=== PATIENT | female | born 2000 | race American Indian/Alaskan Native ===

== ENCOUNTER 2021-03-08 17:36 | Emergency (ER) | payer SELFPAY ==
[2021-03-08] MEDS ORDERED: SODIUM CHLORIDE 0.9% 1000 ML 1,000 ML IV ONE ×2 (17:59→18:00)
--- NOTE | 2021-03-08 18:08 | Emergency Department Report ---
HPI - General Chief Complaint: Arrhythmia/Palpitations Time Seen by Provider: 03/08/21 17:42 - HPI HPI: 20-year-old female at 7 weeks gestation according to first semester ultrasound according to the patient, presents via EMS for chief complaint of 2 days of palpitations and exertional shortness of breath. Patient states that her only medical history is asthma, but she very infrequently has asthma attacks and does not use an inhaler regularly. In fact, she does not currently on an inhaler. She states that for the past 2 days she has had generalized malaise. She is also been having intermittent palpitations. When she woke up this morning, she noticed that her heart was beating very fast. She admits to having very poor p.o. intake of fluids for the past 2 days. She drank a bunch of water today because of her palpitations this morning but this did not seem to help. She states that over the past 2 days she has noticed that when she stands up and exerts herself by walking upstairs or walking to other rooms she feels short of breath and gets chest tightness which feels similar to prior asthma attacks. According to the EMS report, the patient's heart rate changes from the 100s to the 160s upon standing. She denies any associated fever/chills, headache, vision change, neck pain, back pain, mid substernal chest pain, cough, shortness of breath at rest, abdominal pain, lower extremity edema, nausea/vomiting, dysuria, hematuria, vaginal bleeding, or any other complaints. At this moment in time, she denies any symptoms. ED Past Medical Hx - Past Medical History Previous Medical History?: Yes Hx Asthma: Yes - Social History Smoking Status: Never Smoker Substance Use Type: None ED Review of Systems ROS: Stated complaint: TACHYCARDIA Other details as noted in HPI Constitutional: malaise. denies: chills, fever Eyes: denies: eye pain, vision change ENT: denies: throat pain, congestion Respiratory: SOB with exertion. denies: cough, SOB at rest Cardiovascular: palpitations. denies: chest pain (chest congestion), edema, syncope Gastrointestinal: denies: abdominal pain, nausea, vomiting Genitourinary: denies: dysuria, frequency, hematuria Musculoskeletal: denies: back pain, myalgia Skin: denies: rash Neurological: denies: headache, weakness, numbness Psychiatric: denies: anxiety Physical Exam - Physical Exam Physical Exam: GENERAL: Well developed and well nourished. No acute distress HEENT: Normocephalic. No obvious signs of trauma. Moist mucous membranes. EYES: Extraocular movements are intact. Pupils are equal round and reactive to light bilaterally NECK: Supple. Trachea is midline. LUNGS: Nonlabored breathing. Equal chest rise bilaterally. Clear to auscultation bilaterally. HEART/CARDIOVASCULAR: Tachycardic but with regular rhythm. No murmurs or rubs. VASCULAR: 2+ peripheral pulses. Cap refill < 2 seconds. Trace lower extremity edema bilaterally ABDOMEN: Abdomen is soft and nondistended. There is no significant tenderness, guarding or rebound. SKIN: Skin is warm and dry NEURO: Patient is awake, alert, and oriented. nematologist II-XII grossly intact. No focal deficits. Normal motor and sensory exam throughout. Normal speech. MUSCULOSKELETAL: No obvious deformities. No significant tenderness. ED Medical Decision Making - Lab Data Result diagrams: 03/08/21 18:04 03/08/21 18:04 - EKG Data -: EKG Interpreted by Md - EKG Data 03/08/21 18:48 Normal sinus rhythm. Normal axis. Normal intervals. No ectopy. Nonspecific T wave inversions but no significant ST segment abnormalities. - Radiology Data CHEST 1 VIEW INDICATION / CLINICAL INFORMATION: SOB on exertion. COMPARISON: None available. FINDINGS: SUPPORT DEVICES: None. HEART / MEDIASTINUM: No significant abnormality. LUNGS / PLEURA: No significant pulmonary or pleural abnormality. No pneumothorax. ADDITIONAL FINDINGS: No significant additional findings. IMPRESSION: No acute pulmonary or pleural abnormality Signer Name: Emerson Burkett MD FACR Signed: 03/08/2021 7:04 PM Workstation Name: [id number] OB <= 14 weeks fetus INDICATION / CLINICAL INFORMATION: confirm iup. COMPARISON: None available. FINDINGS: A single live fetus is seen in the uterus with heart rate of 166. A yolk sac is present. [place]-rump length is 1.23 cm equaling 7 weeks 3 days gestational age. Right ovary was not visualized. A small cyst is seen in the left ovary. IMPRESSION: Single live fetus of approximately 7 weeks 3 days gestational age in the uterus with heart rate of 166 Signer Name: Emerson Burkett MD FACR Signed: 03/08/2021 7:29 PM Workstation Name: [id number] - Medical Decision Making 20-year-old G1, P0 female at 7 weeks gestation according to trimester ultrasound according to the patient brought in by EMS complaining of 2 days of generalized malaise, palpitations, and exertional dyspnea. She does admit to poor fluid intake over the past 2 days, but states that she tried to drink much water today and this did not improve her symptoms. On initial assessment, the patient is resting comfortably in the stretcher connected to the monitor. When I am in the room speaking to the patient, her heart rate is in the 110s to 120s, but when not in the room, her heart rate is in the 80s. She has normal oxygen saturation on room air. Physical examination is unremarkable other than tachycardia with regular rhythm. The Wells PE score is 1.5, corresponding to low risk of PE. Given that the patient reports poor fluid intake over the past 2 days, her elevated heart rate which increases upon standing could be related to dehydration. In addition, her symptoms could be attributed to as sociated physiologic changes. Nonetheless, we will perform broad work-up with EKG, full set of labs including BNP, troponin, and D-dimer, chest x-ray, and OB ultrasound to confirm IUP. We will obtain orthostatic vital signs and give 2 L of IV fluids. We will continue to monitor the patient closely. Labs have partially resulted and there is no significant leukocytosis or anemia. D-dimer is negative, making pulmonary embolism highly improbable. The remaining diagnostic studies are still pending. The patient does have positive orthostatic vital signs due to increased heart rate upon standing. She did not develop any symptoms, however. Again, this is likely related to state of dehydration and state. BMP reveals mild hyponatremia with sodium of 132 consistent with dehydration. There are no other significant electrolyte abnormalities. Kidney function is normal. BNP is normal. Troponin is negative. TSH is normal. We will follow- up the remaining diagnostic studies as well as reassess the patient after she has received the 2 L of IV fluids. The patient remains with normal heart rate and normal oxygen saturation on room air. On repeat assessment at 9:50 PM, the patient reports that she feels entirely better. Chest x-ray is clear. OB ultrasound confirms the presence of a 7-week 3-day old intrauterine with heart rate of 166. IV fluids are still running. The patient wants to go home. I explained to her the diagnosis of orthostatic tachycardia and the fact that this may be present in but may have been exacerbated by dehydration. She has another IV fluid bag which will be run. After this, we will walk her and ensure that she is steady and stable on her feet and remains symptomatically improved, and if so she will be discharged home with instructions to follow-up with WILL CALL ORDER CLERK in the next couple days. Patient was able to ambulate with steady gait. She is asymptomatic. She is ready go home. Critical care attestation.: If time is entered above; I have spent that time in minutes in the direct care of this critically ill patient, excluding procedure time. ED Disposition Clinical Impression: Dehydration, Orthostasis, Disposition: DC-01 TO HOME OR SELFCARE Is pt being admited?: No Condition: Stable Instructions: Care, First Trimester of , [id number], First Trimester of , Dehydration, Adult Additional Instructions: Please follow-up with an WILL CALL ORDER CLERK within 2 to 3 days. Please return to the emergency department should you develop worsening symptoms, inability to tolerate food or liquids, high fever or any other concerns Referrals: [facility] [Provider Group] - 2-3 Days
[2021-03-08 18:20] LABS: Basophils # (Auto) 0.1 K/mm3 (0.0-0.1); Basophils % (Auto) 0.6 % (0.0-1.8); Eosinophils # (Auto) 0.1 K/mm3 (0.0-0.4); Eosinophils % (Auto) 0.6 % (0.0-4.3); Hematocrit 38.7 % (30.3-42.9); Hemoglobin 12.8 gm/dl (10.1-14.3); Lymphocytes # (Auto) 1.4 K/mm3 (1.2-5.4); Lymphocytes % (Auto) 11.6 % (13.4-35.0); Mean Corpuscular HGB Conc 33 % (30-34); Mean Corpuscular Volume 90 fl (79-97); Monocytes # (Auto) 0.8 K/mm3 (0.0-0.8); Monocytes % (Auto) 6.9 % (0.0-7.3); Platelet Count 250 K/mm3 (140-440); Red Blood Count 4.33 M/mm3 (3.65-5.03); Red Cell Distribution Width 13.8 % (13.2-15.2)
[2021-03-08 18:39] LABS: Alanine Aminotransferase 8 units/L (7-56); Albumin 4.4 g/dL (3.9-5); Blood Urea Nitrogen 4 mg/dL (7-17); Calcium 10.2 mg/dL (8.4-10.2); Hemolysis Index 8
[2021-03-08 18:49] LABS: BUN/Creatinine Ratio 8; Bilirubin,Direct < 0.2 mg/dL (0-0.2)
[2021-03-08 18:54] LABS: Bilirubin,Urine NEG (Negative); Blood,Urine NEG (Negative); Color,Urine Straw (Yellow); Protein,Urine <15 mg/dL mg/dL (Negative); Urobilinogen,Urine < 2.0 mg/dL (<2.0)
--- NOTE | 2021-03-08 20:08 | XRay Report ---
CHEST 1 VIEW INDICATION / CLINICAL INFORMATION: SOB on exertion. COMPARISON: None available. FINDINGS: SUPPORT DEVICES: None. HEART / MEDIASTINUM: No significant abnormality. LUNGS / PLEURA: No significant pulmonary or pleural abnormality. No pneumothorax. ADDITIONAL FINDINGS: No significant additional findings. IMPRESSION: No acute pulmonary or pleural abnormality Signer Name: Emerson Burkett MD FACR Signed: 03/08/2021 8:04 PM Workstation Name: [id number]
--- NOTE | 2021-03-08 20:34 | Ultrasound Report ---
US OB <= 14 weeks fetus INDICATION / CLINICAL INFORMATION: confirm iup. COMPARISON: None available. FINDINGS: A single live fetus is seen in the uterus with heart rate of 166. A yolk sac is present. [place]- rump length is 1.23 cm equaling 7 weeks 3 days gestational age. Right ovary was not visualized. A sma ll cyst is seen in the left ovary. IMPRESSION: Single live fetus of approximately 7 weeks 3 days gestational age in the uterus with heart rate of 166 Signer Name: Emerson Burkett MD FACR Signed: 03/08/2021 8:29 PM Workstation Name: [id number]
[2021-03-08] MEDS ORDERED: SODIUM CHLORIDE 0.9% 1000 ML 1,000 ML ONE (21:22)
[2021-03-09 01:14] VITALS: BP 118/67
--- NOTE | 2021-03-09 09:58 | Electrocardiograph Report ---
[facility] Test Date: 2021-03-08 Test Time: 18:37:42 Pat Name: REMY PACHECO Department: Room: Gender: F [employer] Supervisor: GALA : 2000 Requested By: ANA BUITRAGO Order Number: [id number] Reading MD: Kishor Blanco Measurements Intervals [place] Rate: 81 P: 28 OK: 157 QRS: 24 QRSD: 84 T: 9 QT: 358 QTc: 415 Interpretive Statements Sinus rhythm No previous ECG available for comparison Electronically Signed On 03-09-2021 9:57:37 EDT by Kishor Blanco
== END 2021-03-09 01:15 | disposition home or self-care (01) ==
LOC: ED 17:36
DX: O26.891 Other specified pregnancy related conditions, first trimester (principal); I95.1 Orthostatic hypotension; E86.0 Dehydration; R00.2 Palpitations; J45.909 Unspecified asthma, uncomplicated; Z79.899 Other long term (current) drug therapy; Z3A.01 Less than 8 weeks gestation of pregnancy
CPT/HCPCS: 36415; 71045; 76801; 80048; 80076; 81001; 83880; 84443; 84484; 84702; 85025; 85379; 93005; 96360; 96361; 99285; J7030

== ENCOUNTER 2021-11-29 15:30 | Emergency (ER) | payer MEDICAID ==
[2021-11-29 16:09] LABS: Hematocrit 35.7 % (30.3-42.9); Hemoglobin 11.5 gm/dl (10.1-14.3); Mean Corpuscular HGB Conc 32 % (30-34); Mean Corpuscular Volume 79 fl (79-97); Platelet Count 198 K/mm3 (140-440); Red Blood Count 4.52 M/mm3 (3.65-5.03); Red Cell Distribution Width 26.2 % (13.2-15.2)
[2021-11-29 16:41] LABS: Eosinophils % (Manual) 0 % (0.0-4.3); Total Cells Counted 100
[2021-11-29 16:42] LABS: Anisocytosis 2+; Hypochromasia 1+; Platelet Estimate Consistent w Auto; Poikilocytosis 1+; Tear Drop Cells Few
[2021-11-29] MEDS ORDERED: SODIUM CHLORIDE 0.9% 1000 ML 1,000 ML IV ONE ×2 (21:23→21:34)
[2021-11-29] MEDS ORDERED: MORPHINE 2 MG/1 ML INJ IM ONE (21:33)
[2021-11-29] MEDS ORDERED: ACETAMINOPHEN 325 MG TAB PO ONE (21:33)
[2021-11-29] MEDS ORDERED: MORPHINE 4 MG/1 ML INJ IV ONE (21:34)
[2021-11-29] MEDS ORDERED: ONDANSETRON 4 MG/2 ML INJ IV ONE (21:34)
--- NOTE | 2021-11-29 21:36 | Emergency Department Report ---
ED General Adult HPI - General Chief complaint: Vaginal Bleeding Stated complaint: VAGINAL BLEEDING PUI?: No Time Seen by Provider: 11/29/21 20:50 Source: patient, EMS ( EMS documentation not available at time of chart di ctation ), RN notes reviewed Mode of arrival: Stretcher Limitations: No Limitations - History of Present Illness Initial comments: During the history and physical examination, I am chaperoned by Dora Workman The patient is a 21-year-old female. She is approximately 1 month status post , at [facility]. She reports that after giving , she had a "uterus infection", and now presents to the ER today with a complaint of 1 week of vaginal bleeding and abdominal cramping. Denies headache, neck pain, chest pain, vomiting, diarrhea, dysuria. Endorses abdominal distention, and reports that she has bled "too many pads to count." She does have some lower abdominal pain and cramping. She reports that prior to this week, vaginal bleeding had stopped. -: days(s) Location: abdomen Quality: aching Consistency: constant Improves with: rest Worsens with: movement - Related Data Previous Rx's Medication Instructions Recorded Last Taken Type Acetaminophen [Non-Aspirin Extra 500 mg PO Q6HR PRN #30 tablet 11/29/21 Unknown Rx Strength] Ibuprofen [Motrin] 400 mg PO Q8H PRN #30 tablet 11/29/21 Unknown Rx Allergies Allergy/AdvReac Type Severity Reaction Status Date / Time No Known Allergies Allergy Verified 11/29/21 15:43 ED Review of Systems ROS: Stated complaint: VAGINAL BLEEDING Other details as noted in HPI Constitutional: denies: fever Eyes: denies: eye discharge ENT: denies: epistaxis Respiratory: denies: cough Cardiovascular: denies: chest pain Gastrointestinal: abdominal pain. denies: nausea, vomiting, diarrhea Genitourinary: other (Vaginal bleeding). denies: dysuria Neurological: denies: weakness ED Past Medical Hx - Past Medical History Hx Asthma: Yes - Social History Smoking Status: Never Smoker Substance Use Type: None - Medications Home Medications: Home Medications Medication Instructions Recorded Confirmed Last Taken Type Acetaminophen [Non-Aspirin Extra 500 mg PO Q6HR PRN #30 tablet 11/29/21 Unknown Rx Strength] Ibuprofen [Motrin] 400 mg PO Q8H PRN #30 tablet 11/29/21 Unknown Rx ED Physical Exam - General Limitations: No Limitations General appearance: alert, in no apparent distress - Head Head exam: Present: atraumatic, normocephalic - Eye Eye exam: Present: normal appearance, EOMI. Absent: nystagmus - ENT ENT exam: Present: normal exam, normal orophraynx, mucous membranes moist, normal external ear exam - Neck Neck exam: Present: normal inspection, full ROM. Absent: tenderness, meningismus - Respiratory Respiratory exam: Present: normal lung sounds bilaterally. Absent: respiratory distress, wheezes, rales, rhonchi, stridor, decreased breath sounds - Cardiovascular Cardiovascular Exam: Present: regular rate, normal rhythm, normal heart sounds. Absent: bradycardia, tachycardia, irregular rhythm, systolic murmur, diastolic murmur, rubs, gallop - GI/Abdominal GI/Abdominal exam: Present: soft, tenderness (There is minimal lower abdominal tenderness. There is no right lower quadrant tenderness. There is negative Nuno sign. There is negative Rovsing sign), normal bowel sounds, hernia, o ther (There is a midline hernia. It is reducible. There is no rebound or guarding). Absent: guarding, rebound, rigid, pulsatile mass - External exam: Present: normal external exam, bleeding, other (Chaperoned by Dora Workman) - Extremities Exam Extremities exam: Present: normal inspection, full ROM, other (2+ pulses noted in the bilateral upper and lower extremities. There is no palpable cord. negative Homans sign. Muscular compartments are soft. The pelvis is stable.). Absent: pedal edema, calf tenderness - Back Exam Back exam: Present: normal inspection, full ROM. Absent: tenderness, CVA tenderness (R), CVA tenderness (L), paraspinal tenderness, vertebral tenderness - Neurological Exam Neurological exam: Present: alert, oriented X3, normal gait, other (No facial droop. Tongue midline. Extraocular movements intact bilaterally. Facial sensation intact to light touch in V1, V2, V3 distribution bilaterally. 5 and a 5 strength in 4 extremities. Sensation intact to light touch in 4 extremities.). Absent: motor sensory deficit - Psychiatric Psychiatric exam: Present: normal affect, normal mood - Skin Skin exam: Present: warm, dry, intact, normal color. Absent: rash ED Course Vital Signs 11/29/21 23:10 Temperature 98.7 F Pulse Rate 72 Respiratory 18 Rate Blood Pressure 113/61 O2 Sat by Pulse 100 Oximetry - Reevaluation(s) Reevaluation #1: 11/29/21 23:12 Differential diagnosis, include but not limited to: Retained products of conception, retained placenta, early onset of menstruation Assessment and plan: 21-year-old female with 1 week of vaginal bleeding, lower abdominal distention, no fevers or chills, no nausea or vomiting, hemoglobin hematocrit thus far unremarkable. Obtain gynecologic ultrasound to assess anatomy and to assess for retained products of conception. Treat patient's symptoms. Obtain repeat CBC. Reassess after initial data points. Patient agreeable to this plan of care. Patient looks quite comfortable. She is not exquisitely tender. She is bottlefeeding and breast-feeding. Early menstruation is atypical at this point time, but certainly a possibility. Presuming repeat CBC, ultrasound unremarkable, patient will be discharged with appropriate pain medications, and instructions to follow-up with her outpatient pile operator. At the moment, she is resting comfortably on her stretcher, on her cell phone, and in no acute distress. Denies irritative and obstructive urinary symptoms. Given the aforementioned findings, benign appearance, relatively benign exam, would not obtain CT scan or advanced imaging 11/29/21 23:23 11/29/21 23:25 Labs are essentially unchanged. Discharged with outpatient follow-up ED Medical Decision Making - Lab Data Result diagrams: 11/29/21 22:52 11/29/21 21:47 Lab Results 11/29/21 11/29/21 11/29/21 Range/Units 16:03 16:03 16:03 WBC 8.0 (4.5-11.0) K/mm3 RBC 4.52 (3.65-5.03) M/mm3 Hgb 11.5 (10.1-14.3) gm/dl Hct 35.7 (30.3-42.9) % MCV 79 (79-97) fl MCH 25 L (28-32) pg MCHC 32 (30-34) % RDW 26.2 H (13.2-15.2) % Plt Count 198 (140-440) K/mm3 Add Manual Diff Complete Total Counted 100 Seg Neuts % (Manual) 71.0 H (40.0-70.0) % Band Neutrophils % 0 % Lymphocytes % (Manual) 24.0 (13.4-35.0) % Reactive Lymphs % (Man) 0 % Monocytes % (Manual) 3.0 (0.0-7.3) % Eosinophils % (Manual) 0 (0.0-4.3) % Basophils % (Manual) 2.0 H (0.0-1.8) % Metamyelocytes % 0 % Myelocytes % 0 % Promyelocytes % 0 % Blast Cells % 0 % Nucleated RBC % Not Reportable Seg Neutrophils # Man 5.7 (1.8-7.7) K/mm3 Band Neutrophils # 0.0 K/mm3 Lymphocytes # (Manual) 1.9 (1.2-5.4) K/mm3 Abs React Lymphs (Man) 0.0 K/mm3 Monocytes # (Manual) 0.2 (0.0-0.8) K/mm3 Eosinophils # (Manual) 0.0 (0.0-0.4) K/mm3 Basophils # (Manual) 0.2 H (0.0-0.1) K/mm3 Metamyelocytes # 0.0 K/mm3 Myelocytes # 0.0 K/mm3 Promyelocytes # 0.0 K/mm3 Blast Cells # 0.0 K/mm3 WBC Morphology Not Reportable Hypersegmented Neuts Not Reportable Hyposegmented Neuts Not Reportable Hypogranular Neuts Not Reportable Smudge Cells Not Reportable Toxic Granulation Not Reportable Toxic Vacuolation Not Reportable Dohle Bodies Not Reportable Pelger-Huet Anomaly Not Reportable Ronit Rods Not Reportable Platelet Estimate Consistent w auto Clumped Platelets Not Reportable Plt Clumps, EDTA Not Reportable Large Platelets Not Reportable Giant Platelets Not Reportable Platelet Satelliting Not Reportable Plt Morphology Comment Not Reportable RBC Morphology Not Reportable Dimorphic RBCs Not Reportable Polychromasia Not Reportable Hypochromasia 1+ Poikilocytosis 1+ Anisocytosis 2+ Microcytosis Not Reportable Macrocytosis Not Reportable Spherocytes Not Reportable Pappenheimer Bodies Not Reportable Sickle Cells Not Reportable Target Cells Not Reportable Tear Drop Cells Few Ovalocytes Not Reportable Helmet Cells Not Reportable [place] Bodies Not Reportable [place] Rings Not Reportable [place]an Cells Not Reportable Bite Cells Not Reportable Crenated Cell Not Reportable Elliptocytes Few Acanthocytes (Spur) Not Reportable Rouleaux Not Reportable Hemoglobin C Crystals Not Reportable Schistocytes Not Reportable Malaria parasites Not Reportable Jayson Bodies Not Reportable Hem Pathologist Commnt No HCG, Qual Negative (Negative) HCG, Quant < 2 (0-4) mIU/mL Blood Type 11/29/21 Range/Units 16:03 WBC (4.5-11.0) K/mm3 RBC (3.65-5.03) M/mm3 Hgb (10.1-14.3) gm/dl Hct (30.3-42.9) % MCV (79-97) fl MCH (28-32) pg MCHC (30-34) % RDW (13.2-15.2) % Plt Count (140-440) K/mm3 Add Manual Diff Total Counted Seg Neuts % (Manual) (40.0-70.0) % Band Neutrophils % % Lymphocytes % (Manual) (13.4-35.0) % Reactive Lymphs % (Man) % Monocytes % (Manual) (0.0-7.3) % Eosinophils % (Manual) (0.0-4.3) % Basophils % (Manual) (0.0-1.8) % Metamyelocytes % % Myelocytes % % Promyelocytes % % Blast Cells % % Nucleated RBC % Seg Neutrophils # Man (1.8-7.7) K/mm3 Band Neutrophils # K/mm3 Lymphocytes # (Manual) (1.2-5.4) K/mm3 Abs React Lymphs (Man) K/mm3 Monocytes # (Manual) (0.0-0.8) K/mm3 Eosinophils # (Manual) (0.0-0.4) K/mm3 Basophils # (Manual) (0.0-0.1) K/mm3 Metamyelocytes # K/mm3 Myelocytes # K/mm3 Promyelocytes # K/mm3 Blast Cells # K/mm3 WBC Morphology Hypersegmented Neuts Hyposegmented Neuts Hypogranular Neuts Smudge Cells Toxic Granulation Toxic Vacuolation Dohle Bodies Pelger-Huet Anomaly Ronit Rods Platelet Estimate Clumped Platelets Plt Clumps, EDTA Large Platelets Giant Platelets Platelet Satelliting Plt Morphology Comment RBC Morphology Dimorphic RBCs Polychromasia Hypochromasia Poikilocytosis Anisocytosis Microcytosis Macrocytosis Spherocytes Pappenheimer Bodies Sickle Cells Target Cells Tear Drop Cells Ovalocytes Helmet Cells [place] Bodies [place] Rings Adan Cells Bite Cells Crenated Cell Elliptocytes Acanthocytes (Spur) Rouleaux Hemoglobin C Crystals Schistocytes Malaria parasites Jayson Bodies Hem Pathologist Commnt HCG, Qual (Negative) HCG, Quant (0-4) mIU/mL Blood Type O POSITIVE Vital Signs 11/29/21 23:10 Temperature 98.7 F Pulse Rate 72 Respiratory 18 Rate Blood Pressure 113/61 O2 Sat by Pulse 100 Oximetry - Radiology Data Radiology results: pending, report reviewed, image reviewed ULTRASOUND PELVIS INDICATION / CLINICAL INFORMATION: Pelvic pain and dysfunctional uterine bleeding. x1 month. TECHNIQUE: Transabdominal. Duplex Color Doppler used: Yes. COMPARISON: None available FINDINGS: UTERUS: 10.1 x 5.1 x 5.7 cm. The endometrial stripe measures 3.9 mm AP. No fibroids are seen. RIGHT ADNEXA: No significant ovarian cyst or mass. Normal color Doppler blood flow. The right ovary measures 2.6 x 1.4 x 3.3 cm. LEFT ADNEXA: 3.1 cm simple cyst. Normal color Doppler blood flow. The left ovary measures 4.4 x 3.6 x 4.3 cm. URINARY BLADDER: No significant abnormality. FREE FLUID: None. ADDITIONAL FINDINGS: None. IMPRESSION: 3.1 cm simple follicular cyst in the left ovary. Signer Name: Abraham Fall MD Signed: 11/29/2021 10:17 PM Workstation Name: [id number] Critical care attestation.: If time is entered above; I have spent that time in minutes in the direct care of this critically ill patient, excluding procedure time. ED Disposition Clinical Impression: Vaginal bleeding, Lower abdominal pain, History of section Disposition: HOME / SELF CARE / HOMELESS Is pt being admited?: No Does the pt Need Aspirin: No Condition: Good Instructions: Abnormal Uterine Bleeding Additional Instructions: Patient may take the prescribed medications as needed and directed. Up with an pile operator within the next 48 to 72 hours for repeat checkup and evaluation. Please return to the emergency room right away with new pain, worsened pain, migration of pain, projectile vomiting, change in mental status, confusion, inability tolerate liquid feeds, new, worsened or different symptoms not present on the initial emergency room evaluation Referrals: [facility] [Provider Group] - 3-5 Days [facility] [Provider Group] - 3-5 Days [facility] [Provider Group] - 3-5 Days Forms: Work/School Release Form(ED)
[2021-11-29 23:01] LABS: Blood Urea Nitrogen 7 mg/dL (7-17); Calcium 9.5 mg/dL (8.4-10.2); Hemolysis Index 20
[2021-11-29 23:12] VITALS: BP 113/61
[2021-11-29 23:18] LABS: Hematocrit 35.9 % (30.3-42.9); Hemoglobin 11.3 gm/dl (10.1-14.3)
[2021-11-29 23:19] LABS: BUN/Creatinine Ratio 12
--- NOTE | 2021-11-29 23:21 | Ultrasound Report ---
ULTRASOUND PELVIS INDICATION / CLINICAL INFORMATION: Pelvic pain and dysfunctional uterine bleeding. x1 freddy h. TECHNIQUE: Transabdominal. Duplex Color Doppler used: Yes. COMPARISON: None available FINDINGS: UTERUS: 10.1 x 5.1 x 5.7 cm. The endometrial stripe measures 3.9 mm AP. No fibroids are seen. RIGHT ADNEXA: No significant ovarian cyst or mass. Normal color Doppler blood flow. The right ovary m easures 2.6 x 1.4 x 3.3 cm. LEFT ADNEXA: 3.1 cm simple cyst. Normal color Doppler blood flow. The left ovary measures 4.4 x 3.6 x 4.3 cm. URINARY BLADDER: No significant abnormality. FREE FLUID: None. ADDITIONAL FINDINGS: None. IMPRESSION: 3.1 cm simple follicular cyst in the left ovary. Signer Name: Abraham Fall MD Signed: 11/29/2021 11:17 PM Workstation Name: [id number]
== END 2021-11-29 23:43 | disposition home or self-care (01) ==
LOC: ED 15:30
DX: O72.1 Other immediate postpartum hemorrhage (principal); R10.30 Lower abdominal pain, unspecified; Z98.890 Other specified postprocedural states; J45.909 Unspecified asthma, uncomplicated
CPT/HCPCS: 36415; 80048; 84702; 84703; 85007; 85014; 85018; 85025; 86900; 86901; 93975; 96361; 96374; 96375; 99285; J2270; J2405; J7030; 99284; Q0162